=== PATIENT | female | born 1965 | race Caucasian/White ===

== ENCOUNTER 2018-04-04 05:45 | Observation (INO) | payer OTHER ==
--- NOTE | 2018-04-04 07:01 | PDOC ---
History of Present Illness - General Chief Complaint: Pain, Acute Stated Complaint: ABD PAIN Time Seen by Provider: 04/04/18 07:01 History Source: Patient Exam Limitations: No Limitations - History of Present Illness Initial Comments: 04/04/18 07:31 53 year old female with PMH HTN, GERD, cholecystectomy presenting to ED for right inguinal pain since last night. She states her pain radiates to her RLQ and LLQ. She admits to nausea, vomiting, diarrhea, headache, dizziness, SOB, lightheadedness, fever, chills, sweats. She denies blood in stool, hematuria, hematemesis, constipation, dysuria, cough. Pt states she was diagnosed with a hernia x3 weeks ago. She states she took 2 Tylenol last night, but was unable to keep it down. Pt states she was sent by Dr. Becker for evaluation. PCP - Dr. Becker Allergies - none Surgical history - cholecystectomy, hysterectomy. Past History - Past Medical History Allergies/Adverse Reactions: Allergies Allergy/AdvReac Type Severity Reaction Status Date / Time No Known Allergies Allergy Verified 04/04/18 06:10 Home Medications: Ambulatory Orders Acetaminophen [Tylenol -] 1,000 mg PO Q6H #12 tablet 04/04/18 Ondansetron HCl [Zofran] 4 mg PO PRN #3 tablet 04/04/18 COPD: No - Reproductive History Is Patient Now?: No Therapeutic (s) & number: No - Immunization History Immunization Up to Date: Yes - Suicide/Smoking/Psychosocial Hx Smoking History: Never smoked Have you smoked in the past 12 months: No Information on smoking cessation initiated: No Hx Alcohol Use: No Drug/Substance Use Hx: No Substance Use Type: None Review of Systems - Review of Systems Able to Perform ROS?: Yes Comments:: 04/04/18 07:40 General: admits to fever, chills, sweats. HEENT: denies sore throat, rhinorrhea, ear pain. Heart: denies chest pain, palpitations, syncope, lower extremity swelling. Respiratory: admits to shortness of breath. denies cough, sputum production, hematemesis. Abdomen: admits to abdominal pain, nausea, vomiting, diarrhea. denies constipation, blood in stool. : denies dysuria, increased urinary frequency, hematuria, urinary incontinence , flank pain. Back: denies back pain, flank pain. Musculoskeletal: denies joint pain, muscle pain, joint swelling. Neurological: admits to headache and dizziness. denies numbness, tingling, weakness. Skin: denies rash, laceration, abrasion. *Physical Exam - Vital Signs Last Vital Signs Temp Pulse Resp BP Pulse Ox 98.5 F 74 20 107/71 99 04/04/18 06:10 04/04/18 06:10 04/04/18 06:10 04/04/18 06:10 04/04/18 06:10 - Physical Exam Comments: 04/04/18 07:41 Appearance: comfortable. HEENT: head is normocephalic, atraumatic. EOMI. PERRLA. Neck: supple. Full ROM. Heart: regular rhythm. no murmurs, rubs or gallops. No pericardial friction rub. Lungs: clear to auscultation bilaterally. no crackles, rhonchi or wheezing. no stridor. Abdomen: soft. flat. tenderness to palpation of RLQ and LLQ, RLQ>LLQ. normal bowel sounds. no rebound, guarding, masses. : tenderness to palpation of right inguinal area. Extremities: Peripheral pulses intact. No lower extremity edema. Neurological: Alert. Oriented x3. CN 2-12 grossly intact. Moves all four extremities. ED Treatment Course - LABORATORY CBC & Chemistry Diagram: 04/04/18 07:35 04/04/18 07:35 Medical Decision Making - Medical Decision Making 04/04/18 07:51 53 year old female with PMM HTN, cholecystectomy, right sided hernia sent to ED by Dr. Becker for evaluation of right sided inguinal pain. Initial Vital Signs Temp Pulse Resp BP Pulse Ox 98.5 F 74 20 107/71 99 04/04/18 06:10 04/04/18 06:10 04/04/18 06:10 04/04/18 06:10 04/04/18 06:10 Afebrile. No tachycardia. Pending labs, CT abdomen/pelvis. Zofran ordered for Nausea. Fluids ordered. IV Tylenol ordered for pain. 04/04/18 09:52 No leukocytosis. No anemia. No electrolyte abnormalities. No kidney dysfunction. Lipase normal. Lactate normal, 1.7. Pending CT A/P. 04/04/18 10:00 Pt reassessed, states her pain has improved and she is feeling better. Pending CT. 04/04/18 11:52 Ct abdomen and pelvis negative. I spoke with the pt's PCP, Dr. Becker, who will admit the patient. I discussed the case with him. He will take over care for the patient. I have discussed the plan of care with the patient, who agrees to admission. *DC/Admit/Observation/Transfer Diagnosis at time of Disposition: Inguinal pain, Abdominal pain - Discharge Dispostion Condition at time of disposition: Improved Decision to Admit order: Yes - Prescriptions Prescriptions: Acetaminophen [Tylenol -] 1,000 mg PO Q6H #12 tablet Ondansetron HCl [Zofran] 4 mg PO PRN #3 tablet - Referrals Referrals: Rayna Becker MD [Primary Care Provider] - - Patient Instructions - Post Discharge Activity
[2018-04-04] MEDS ORDERED: SODIUM CHLORIDE 1,000 ML IV STA (07:34)
[2018-04-04] MEDS ORDERED: ONDANSETRON 4 MG/2 ML VIAL IVPUSH ONE (07:34)
[2018-04-04] MEDS ORDERED: ACETAMINOPHEN 1000 MG/100 ML VIAL (NON FORMULARY) IVPB ONE (07:34)
[2018-04-04] MEDS ORDERED: ACETAMINOPHEN INJECTION 100 ML IVPB ONE (07:44)
[2018-04-04] MEDS ORDERED: ONDANSETRON 4 MG/2 ML VIAL ONE (07:44)
--- NOTE | 2018-04-04 08:26 | PDOC ---
Attending Attestation - Resident Resident Name: Sada Charles - ED Attending Attestation I have performed the following: I have examined & evaluated the patient, The case was reviewed & discussed with the resident, I agree w/resident's findings & plan, Exceptions are as noted - HPI HPI: 04/04/18 08:26 53 F with HTN, GERD, presenting with RLQ pain. Pt reports pain in this area for 2 months and was diagnosed with R inguinal hernia on outpt CT. Pt states that the pain acutely worsened last night. States that she vomited several times and has been unable to tolerate any PO. Denies F/C. Denies CP/SOB. - Physicial Exam PE: 04/04/18 08:27 "GENERAL: Awake, alert, and fully oriented, in no acute distress. HEAD: No signs of trauma EYES: PERRLA, EOMI, sclera anicteric, conjunctiva clear ENT: Auricles normal inspection, hearing grossly normal, nares patent, oropharynx clear without exudates. Moist mucosa NECK: Nontender, no stepoffs, Normal ROM, supple, no lymphadenopathy, JVD, or masses LUNGS: Breath sounds equal, clear to auscultation bilaterally. No wheezes, and no crackles HEART: Regular rate and rhythm, normal S1 and S2, no murmurs, rubs or gallops ABDOMEN: + Tender RLQ, normoactive bowel sounds. No guarding, no rebound. No masses EXTREMITIES: Normal range of motion, no edema. No clubbing or cyanosis. No cords, erythema, or tenderness NEUROLOGICAL: Cranial nerves II through XII intact. 5/5 strength and sensation in all extremities, Normal speech, normal gait, normal cerebellar function SKIN: Warm, Dry, normal turgor, no rashes or lesions noted." - Medical Decision Making 04/04/18 08:28 53 F with R inguinal pain + vomiting, concerning for incarcerated hernia, though unable to palpate inguinal mass on exam. Will also r/o acute appy. - Labs - CTAP - IVF, pain control
[2018-04-04 08:37] LABS: BASO % 0.5 % (0-2.0); EOS % 0.6 % (0-4.5); HEMATOCRIT 34.3 % (32.4-45.2); HEMOGLOBIN 10.9 GM/dL (10.7-15.3); LYMPH % 29.4 % (8-40); MCH 23.8 pg (25.7-33.7); MCHC 31.6 g/dl (32.0-36.0); MEAN CELL VOLUME 75.2 fl (80-96); MEAN PLT VOLUME 8.6 fl (7.5-11.1); MONO % 6.1 % (3.8-10.2); NEUT % 63.4 % (42.8-82.8); PLATELET COUNT 251 K/MM3 (134-434); RBC 4.56 M/mm3 (3.60-5.2); RDW 15.1 % (11.6-15.6); WHITE BLOOD COUNT 5.7 K/mm3 (4.0-10.0)
[2018-04-04 08:39] LABS: URINE APPEARANCE CLEAR; URINE BILIRUBIN NEGATIVE (<2.0 mg/dL); URINE COLOR LTYELLOW; URINE GLUCOSE (UA) NEGATIVE (NEGATIVE); URINE KETONE NEGATIVE (NEGATIVE); URINE LEUK ESTERASE NEGATIVE (NEGATIVE); URINE NITRITE NEGATIVE (NEGATIVE); URINE PROTEIN NEGATIVE (NEGATIVE); URINE UROBILINOGEN NEGATIVE mg/dL (0.2-1.0)
[2018-04-04 09:33] LABS: CHLORIDE 101 mmol/L (98-107); POTASSIUM 4.4 mmol/L (3.5-5.1); SODIUM 138 mmol/L (136-145)
[2018-04-04 09:43] LABS: ALBUMIN 4.2 g/dl (3.4-5.0); ALK PHOS 64 U/L (45-117); ANION GAP 12 (8-16); BILIRUBIN,TOTAL 0.6 mg/dL (0.2-1.0); BLOOD UREA NITROGEN 12 mg/dL (7-18); CALCIUM 9.4 mg/dL (8.5-10.1); CO2 25 mmol/L (21-32); CREATININE 0.8 mg/dL (0.55-1.02); GLUCOSE,RANDOM 83 mg/dL (74-106); LIPASE 72 U/L (73-393); SGOT/AST 19 U/L (15-37); SGPT/ALT 27 U/L (12-78); TOT PROT 7.7 g/dl (6.4-8.2)
[2018-04-04] MEDS ORDERED: PANTOPRAZOLE SODIUM 40 MG VIAL IVPUSH ONE (10:27)
[2018-04-04] MEDS ORDERED: ACETAMINOPHEN 650 MG SUPP.RECT PR PRN (10:27)
--- NOTE | 2018-04-04 10:30 | HP ---
Admitting History and Physical - Primary Care Physician PCP: Rayna Becker - Admission Chief Complaint: abd alana sent for right inguinal hernia incarcerated History of Present Illness: set from my office for right inguinal tenderness and pain, likely incarcerated hernia History Source: Patient - Past Medical History ...: No - Smoking History Smoking history: Never smoked Have you smoked in the past 12 months: No - Alcohol/Substance Use Hx Alcohol Use: No Home Medications - Allergies Allergies/Adverse Reactions: Allergies Allergy/AdvReac Type Severity Reaction Status Date / Time No Known Allergies Allergy Verified 04/04/18 06:10 - Home Medications Home Medications: Ambulatory Orders Acetaminophen [Tylenol -] 1,000 mg PO Q6H #12 tablet 04/04/18 Ondansetron HCl [Zofran] 4 mg PO PRN #3 tablet 04/04/18 Review of Systems - Review of Systems Constitutional: reports: Other Eyes: reports: No Symptoms HENT: reports: No Symptoms Neck: reports: No Symptoms Cardiovascular: reports: No Symptoms Respiratory: reports: No Symptoms Gastrointestinal: reports: Abdominal Pain Genitourinary: reports: Pain Breasts: reports: No Symptoms Reported Musculoskeletal: reports: No Symptoms Integumentary: reports: No Symptoms Neurological: reports: No Symptoms Endocrine: reports: No Symptoms Hematology/Lymphatic: reports: No Symptoms Psychiatric: reports: No Symptoms Physical Examination Vital Signs: Vital Signs Temperature 97.6 F 04/04/18 09:58 Pulse Rate 59 L 04/04/18 09:58 Respiratory Rate 16 04/04/18 09:58 Blood Pressure 98/56 04/04/18 09:58 O2 Sat by Pulse Oximetry (%) 98 04/04/18 09:58 Constitutional: Yes: Moderate Distress Eyes: Yes: WNL HENT: Yes: WNL Neck: Yes: WNL Cardiovascular: Yes: WNL Respiratory: Yes: WNL Gastrointestinal: Yes: Palpable Mass (RIGHT INGUINAL), Tenderness ...Rectal Exam: Yes: Other Renal/: Yes: WNL Musculoskeletal: Yes: WNL Extremities: Yes: WNL Edema: No Peripheral Pulses WNL: Yes Integumentary: Yes: WNL Wound/Incision: Yes: Clean/Dry Neurological: Yes: WNL ...Motor Strength: WNL Psychiatric: Yes: WNL Labs: CBC, BMP 04/04/18 07:35 04/04/18 07:35 Imaging - Results Cat Scan: Pending Problem List - Problems (1) Inguinal hernia of right side with obstruction Code(s): K40.30 - UNIL INGUINAL HERNIA, W OBST, W/O GANGR, NOT SPCF RECUR Assessment/Plan SURGERY EVAL IVF NPO PAIN CONTROL DVT PROPHYLAXIS
[2018-04-04] MEDS: SODIUM CHLORIDE 1,000 ML IV SCH ×2 (10:34→18:30)
[2018-04-04] MEDS ORDERED: PANTOPRAZOLE SODIUM 40 MG/100 ML BAG IVPB ONE (11:12)
--- NOTE | 2018-04-04 12:10 | CONSULT ---
- Consultation REQUESTING PROVIDER: CONSULT REQUEST: We have been asked to surgically evaluate this patient for abd pain, possible hernia. PCP: HISTORY OF PRESENT ILLNESS: The patient is a 53 yo female who presented yesterday for admission after being seen in Dr. Becker's office. That patient states that she has been having this pain and symptoms for the past 4 years. She notes pain with certain physical activities, like running, spin class, rock climbing, lifting. The pain is relieved with rest after several hours and pain medicaitons. She is having regular bowel movements and passing flatus. The past two days she had nausea with associated emesis. Her pain is located low over her hysterctomy scar and to the RLQ. No history of visualizing or feeling any masses to her abdomen. She denies any painful urination or blood in her urine. No vaginal bleeding. Denies that she is having sexual intercorse. Over the past four years she has seen several specialist for this pain. Her last OB appointment was 6 months ago and she has had colonoscopies(which were negative) and and endoscopy which revealed gastritis. Pt seen and evaluated with Dr. Chu today in the ER. PMHx: ovarian cancer PSHx: total abdominal hysterectomy 2013, breast biopsies, cholecystectomy Home Medications Medication Instructions Recorded Acetaminophen [Tylenol -] 1,000 mg PO Q6H #12 tablet 04/04/18 Ondansetron HCl [Zofran] 4 mg PO PRN #3 tablet 04/04/18 Allergies Allergy/AdvReac Type Severity Reaction Status Date / Time No Known Allergies Allergy Verified 04/04/18 06:10 REVIEW OF SYSTEMS: CONSTITUTIONAL: Absent: fever, chills GASTROINTESTINAL: Present: abdominal pain, nausea, vomiting, passing flatus and having BM. GENITOURINARY: PHYSICAL EXAM: GENERAL: Awake, alert, and fully oriented, in no acute distress. HEAD: Normal with no signs of trauma. ABDOMEN: Soft,non-distended, tender to palpation mid-hysterectomy scar and RLQ. No masses appreciated. No rebound or guarding. Vital Signs Temperature 97.6 F 04/04/18 09:58 Pulse Rate 59 L 04/04/18 09:58 Respiratory Rate 16 04/04/18 09:58 Blood Pressure 98/56 04/04/18 09:58 O2 Sat by Pulse Oximetry (%) 98 04/04/18 09:58 Lab Results WBC 5.7 K/mm3 (4.0-10.0) 04/04/18 07:35 RBC 4.56 M/mm3 (3.60-5.2) 04/04/18 07:35 Hgb 10.9 GM/dL (10.7-15.3) 04/04/18 07:35 Hct 34.3 % (32.4-45.2) 04/04/18 07:35 MCV 75.2 fl (80-96) L 04/04/18 07:35 MCHC 31.6 g/dl (32.0-36.0) L 04/04/18 07:35 RDW 15.1 % (11.6-15.6) 04/04/18 07:35 Plt Count 251 K/MM3 (134-434) 04/04/18 07:35 Sodium 138 mmol/L (136-145) 04/04/18 07:35 Potassium 4.4 mmol/L (3.5-5.1) 04/04/18 07:35 Chloride 101 mmol/L (98-107) 04/04/18 07:35 Carbon Dioxide 25 mmol/L (21-32) 04/04/18 07:35 Anion Gap 12 (8-16) 04/04/18 07:35 BUN 12 mg/dL (7-18) 04/04/18 07:35 Creatinine 0.8 mg/dL (0.55-1.02) 04/04/18 07:35 Random Glucose 83 mg/dL (74-106) 04/04/18 07:35 Calcium 9.4 mg/dL (8.5-10.1) 04/04/18 07:35 Laboratory Tests 04/04/18 07:41 Urine Color Ltyellow Urine Appearance Clear Urine pH 7.0 Ur Specific [place] 1.005 Urine Protein Negative Urine Glucose (UA) Negative Urine Ketones Negative Urine Blood Negative Urine Nitrite Negative Urine Bilirubin Negative Urine Urobilinogen Negative Ur Leukocyte Esterase Negative CT scan: IV contrast-No inguinal hernias seen or lymph node enlargement. No evidence of acute pathology in the abd/pelvis. No bowel obstruction. Fl Normauid filled small bowel with no dilatation. Normal appearing appendix and terminal ileum. Problem List - Problems (1) Abdominal pain Assessment/Plan: PT seen and evaluated with Dr. Chu today. Her CT scan was reviewed was reviewed with the radiology department. No evidence of hernia/bowel obstruction on radiographic studies/physical exam. Recommend trial of clears as per the medical team. If continues to have nausea/ emesis may consider small bowel series, she could have adhesions as the cause of her pain. Although unlikely because her symptoms aren't associated with eating and she is having bowel function. Her pain is initiated by strenuous physical activity. Ct scan did reveal fluid filled small bowel, no bowel dilatation/c/w ileus. No acute surgical pathology requiring surgical intervention at this time. Code(s): R10.9 - UNSPECIFIED ABDOMINAL PAIN Qualifiers: Abdominal location: lower abdomen, unspecified Qualified Code(s): R10.30 - Lower abdominal pain, unspecified
[2018-04-04 13:24] VITALS: BMI 32.3
[2018-04-04] MEDS: morphine SULFATE 4 MG/ML VIAL IVPUSH PRN ×2 (14:16→20:41)
[2018-04-04] MEDS: ONDANSETRON 4 MG/2 ML VIAL IVPUSH PRN (18:56)
[2018-04-05] MEDS: morphine SULFATE 4 MG/ML VIAL IVPUSH PRN ×2 (01:46→08:02)
[2018-04-05] MEDS: SODIUM CHLORIDE 1,000 ML IV SCH (06:50)
[2018-04-05] MEDS: ONDANSETRON 4 MG/2 ML VIAL IVPUSH PRN (06:50)
[2018-04-05 08:26] LABS: HEMATOCRIT 28.9 % (32.4-45.2); HEMOGLOBIN 9.4 GM/dL (10.7-15.3); MCH 24.7 pg (25.7-33.7); MCHC 32.5 g/dl (32.0-36.0); MEAN CELL VOLUME 75.9 fl (80-96); MEAN PLT VOLUME 8.6 fl (7.5-11.1); PLATELET COUNT 209 K/MM3 (134-434); RDW 15.4 % (11.6-15.6); WHITE BLOOD COUNT 3.8 K/mm3 (4.0-10.0)
[2018-04-05 08:39] LABS: ALBUMIN 3.2 g/dl (3.4-5.0); ANION GAP 7 (8-16); BILIRUBIN,TOTAL 0.5 mg/dL (0.2-1.0); BLOOD UREA NITROGEN 10 mg/dL (7-18); CALCIUM 7.8 mg/dL (8.5-10.1); CHLORIDE 112 mmol/L (98-107); CO2 25 mmol/L (21-32); CREATININE 0.7 mg/dL (0.55-1.02); GLUCOSE,RANDOM 96 mg/dL (74-106); SGOT/AST 14 U/L (15-37); SGPT/ALT 23 U/L (12-78); SODIUM 144 mmol/L (136-145)
[2018-04-05 08:40] LABS: ALK PHOS 49 U/L (45-117)
[2018-04-05] MEDS ORDERED: ALPRAZolam 0.25 MG TABLET PO SCH (10:00)
--- NOTE | 2018-04-05 12:09 | CON.GI ---
Consult Consult Specialty:: GI Reason for Consultation:: lower abdominal pain - History of Present Illness History of Present Illness: chart reviewed. Events noted. Sx and ED evaluations noted. per initial intake: 3 year old female with PMH HTN, GERD, cholecystectomy presenting to ED for right inguinal pain since last night. She states her pain radiates to her RLQ and LLQ. She admits to nausea, vomiting, diarrhea, headache , dizziness, SOB, lightheadedness, fever, chills, sweats. She denies blood in stool, hematuria, hematemesis, constipation, dysuria, cough. Pt states she was diagnosed with a hernia x3 weeks ago. She states she took 2 Tylenol last night, but was unable to keep it down. Pt states she was sent by Dr. Becker for evaluation. EGD 3 weeksa go - reflux esophagitis, per patient, on Zantac 150 qd. Colonoscopy 1 y ago @ [facility] - normal, per patient. No melena, hematochezia, hematemesis, nausea, diarrhea, or vomiting. No fever, chills, jaundice. CT A/P revealed s/p cholecystectomy and hysterectomy. No evidence of hernia, or acute pathology. Possible small bowel ileus. - History Source History Provided By: Patient, Transfer Record - Past Medical History ...: No - Alcohol/Substance Use Hx Alcohol Use: No - Smoking History Smoking history: Former smoker Have you smoked in the past 12 months: No If you are a former smoker, when did you quit?: 2005 Home Medications - Allergies Allergies/Adverse Reactions: Allergies Allergy/AdvReac Type Severity Reaction Status Date / Time No Known Allergies Allergy Verified 04/04/18 06:10 - Home Medications Home Medications: Ambulatory Orders Acetaminophen [Tylenol -] 1,000 mg PO Q6H #12 tablet 04/04/18 Alprazolam [Xanax] 1 mg PO TID 04/04/18 Ondansetron HCl [Zofran] 4 mg PO PRN #3 tablet 04/04/18 Polyethylene Glycol 3350 [Miralax 255 gm Btl -] 17 grams PO DAILY 04/04/18 Ranitidine HCl [Zantac] 150 mg PO TID 04/04/18 Zolpidem Tartrate [Ambien] 5 mg PO HS 04/04/18 Family Disease History - Family Disease History Family History: Unremarkable Review of Systems Findings/Remarks: as per HPI, H&P, ED Physical Exam-GI Vital Signs: Vital Signs Temperature 97.3 F L 04/05/18 07:32 Pulse Rate 60 04/05/18 07:32 Respiratory Rate 18 04/05/18 07:32 Blood Pressure 101/59 04/05/18 07:32 O2 Sat by Pulse Oximetry (%) 99 04/04/18 21:00 Constitutional: Yes: Well Nourished, No Distress, Calm Eyes: Yes: Conjunctiva Clear HENT: Yes: Atraumatic Neck: Yes: Supple Cardiovascular: Yes: Regular Rate and Rhythm Respiratory: Yes: Regular Gastrointestinal Inspection: No: Ascites, Distention ...Auscultate: Yes: Normoactive Bowel Sounds ...Palpate: Yes: Soft, Tenderness (suprapubic). No: Firm/Rigid, Guarding, Mass , Tenderness, Epigastium, Tenderness, Rebound Neurological: Yes: Alert, Oriented Labs: CBC, BMP 04/05/18 07:30 04/05/18 07:30 Laboratory Last Values WBC 3.8 K/mm3 (4.0-10.0) L 04/05/18 07:30 RBC 3.80 M/mm3 (3.60-5.2) 04/05/18 07:30 Hgb 9.4 GM/dL (10.7-15.3) L 04/05/18 07:30 Hct 28.9 % (32.4-45.2) L D 04/05/18 07:30 MCV 75.9 fl (80-96) L 04/05/18 07:30 MCH 24.7 pg (25.7-33.7) L 04/05/18 07:30 MCHC 32.5 g/dl (32.0-36.0) 04/05/18 07:30 RDW 15.4 % (11.6-15.6) 04/05/18 07:30 Plt Count 209 K/MM3 (134-434) 04/05/18 07:30 MPV 8.6 fl (7.5-11.1) 04/05/18 07:30 Absolute Neuts (auto) 3.6 # 04/04/18 07:35 Neutrophils % 63.4 % (42.8-82.8) 04/04/18 07:35 Lymphocytes % 29.4 % (8-40) 04/04/18 07:35 Monocytes % 6.1 % (3.8-10.2) 04/04/18 07:35 Eosinophils % 0.6 % (0-4.5) 04/04/18 07:35 Basophils % 0.5 % (0-2.0) 04/04/18 07:35 Nucleated RBC % 0 % (0-0) 04/04/18 07:35 Sodium 144 mmol/L (136-145) 04/05/18 07:30 Potassium 4.0 mmol/L (3.5-5.1) 04/05/18 07:30 Chloride 112 mmol/L (98-107) H 04/05/18 07:30 Carbon Dioxide 25 mmol/L (21-32) 04/05/18 07:30 Anion Gap 7 (8-16) L 04/05/18 07:30 BUN 10 mg/dL (7-18) 04/05/18 07:30 Creatinine 0.7 mg/dL (0.55-1.02) 04/05/18 07:30 Creat Clearance w eGFR > 60 (>60) 04/05/18 07:30 Random Glucose 96 mg/dL (74-106) 04/05/18 07:30 Lactic Acid 1.7 mmol/L (0.0-2.0) 04/04/18 07:50 Calcium 7.8 mg/dL (8.5-10.1) L 04/05/18 07:30 Total Bilirubin 0.5 mg/dL (0.2-1.0) 04/05/18 07:30 AST 14 U/L (15-37) L 04/05/18 07:30 ALT 23 U/L (12-78) 04/05/18 07:30 Alkaline Phosphatase 49 U/L (45-117) D 04/05/18 07:30 Total Protein 6.0 g/dl (6.4-8.2) L 04/05/18 07:30 Albumin 3.2 g/dl (3.4-5.0) L 04/05/18 07:30 Lipase 72 U/L (73-393) L 04/04/18 07:35 Urine Color Ltyellow 04/04/18 07:41 Urine Appearance Clear 04/04/18 07:41 Urine pH 7.0 (5.0-8.0) 04/04/18 07:41 Ur Specific [place] 1.005 (1.001-1.035) 04/04/18 07:41 Urine Protein Negative (NEGATIVE) 04/04/18 07:41 Urine Glucose (UA) Negative (NEGATIVE) 04/04/18 07:41 Urine Ketones Negative (NEGATIVE) 04/04/18 07:41 Urine Blood Negative (NEGATIVE) 04/04/18 07:41 Urine Nitrite Negative (NEGATIVE) 04/04/18 07:41 Urine Bilirubin Negative (<2.0 mg/dL) 04/04/18 07:41 Urine Urobilinogen Negative mg/dL (0.2-1.0) 04/04/18 07:41 Ur Leukocyte Esterase Negative (NEGATIVE) 04/04/18 07:41 Imaging - Results Cat Scan: Report Reviewed Problem List - Problems (1) Abdominal pain Code(s): R10.9 - UNSPECIFIED ABDOMINAL PAIN Qualifiers: Abdominal location: lower abdomen, unspecified Qualified Code(s): R10.30 - Lower abdominal pain, unspecified Assessment/Plan A mild small bowel ileus on CT w/o overt signs of toxicity, or inflammation. Non -surgical abdomen on exam. The abdominal pain appears to be localized to the skin/abdominal wall over the hysterectomy scar. Recommend: advance diet to full liquid and observe. Discussed with the patient.
--- NOTE | 2018-04-05 13:09 | DS ---
Physical Examination Vital Signs: Vital Signs Temperature 97.3 F L 04/05/18 07:32 Pulse Rate 60 04/05/18 07:32 Respiratory Rate 18 04/05/18 07:32 Blood Pressure 101/59 04/05/18 07:32 O2 Sat by Pulse Oximetry (%) 99 04/04/18 21:00 Constitutional: Yes: No Distress Eyes: Yes: WNL HENT: Yes: WNL Neck: Yes: WNL Cardiovascular: Yes: WNL Respiratory: Yes: WNL Gastrointestinal: Yes: WNL Renal/: Yes: WNL Musculoskeletal: Yes: WNL Extremities: Yes: WNL Edema: No Peripheral Pulses WNL: Yes Integumentary: Yes: WNL Wound/Incision: Yes: Clean/Dry Neurological: Yes: WNL ...Motor Strength: WNL Psychiatric: Yes: WNL Labs: CBC, BMP 04/05/18 07:30 04/05/18 07:30 Discharge Summary Reason For Visit: INGUINAL PAIN; ABDOMINAL PAIN Current Active Problems Abdominal pain (Acute) Inguinal hernia of right side with obstruction (Acute) Inguinal pain (Acute) Procedures: Principal: ct scan abd Hospital Course: positive ileus, tolerating meals, recommend liquid soft diet, see dr hall in 1 week Condition: Improved - Instructions Diet, Activity, Other Instructions: soft liquid diet see dr hall 1 week Referrals: Rayna Hall MD [Primary Care Provider] - Disposition: HOME - Home Medications Comprehensive Discharge Medication List: Ambulatory Orders Acetaminophen [Tylenol -] 1,000 mg PO Q6H #12 tablet 04/04/18 Alprazolam [Xanax] 1 mg PO TID 04/04/18 Ondansetron HCl [Zofran] 4 mg PO PRN #3 tablet 04/04/18 Polyethylene Glycol 3350 [Miralax 255 gm Btl -] 17 grams PO DAILY 04/04/18 Ranitidine HCl [Zantac] 150 mg PO TID 04/04/18 Zolpidem Tartrate [Ambien] 5 mg PO HS 04/04/18 Alprazolam [Xanax] 1 mg PO BID tablet MDD 2 04/05/18
[2018-04-05 13:56] VITALS: BP 105/60; PULSE 69; TEMP 97.9
== END 2018-04-05 14:13 | disposition home or self-care (01) ==
LOC: JER 05:45 → SUPCPDRO 05:45 → JERBED 11:51 → J8W 12:30
PROVIDERS: ADMIT Family Medicine; ATTEND Family Medicine
PROC: 3E033NZ Introduction of Analgesics, Hypnotics, Sedatives into Peripheral Vein, Percutaneous Approach (ICD-10-PCS; principal; 2018-04-04)
DX: K40.30 Unilateral inguinal hernia, with obstruction, without gangrene, not specified as recurrent (principal); R10.30 Lower abdominal pain, unspecified; I10 Essential (primary) hypertension; K21.9 Gastro-esophageal reflux disease without esophagitis
CPT/HCPCS: 36415; 74177-TC; 80053; 81003; 83605; 83690; 85025; 85027; 87086; 96361; 96372; 96374; 96375; 96376; 99285-25; G0378; J0131; J7030